=== PATIENT | male | born 1940 | race Caucasian/White ===

== ENCOUNTER 2022-04-01 12:38 | Inpatient (IN) | payer MEDICARE, BC, OTHER ==
[~2022-04-01] VITALS: Ht 172.7 cm; Wt 80.1 kg
[2022-04-01] MEDS ORDERED: METF10004 PO (12:58)
[2022-04-01] MEDS ORDERED: LEVO88TA3 PO (12:58)
[2022-04-01] MEDS ORDERED: GLIP5TAB8 PO ×2 (12:58→18:44)
[2022-04-01] MEDS ORDERED: NITR0.4S14 SL (12:58)
[2022-04-01] MEDS ORDERED: FINA5TAB2 PO (12:58)
[2022-04-01] MEDS ORDERED: METO50TA7 PO (12:58)
[2022-04-01] MEDS ORDERED: ATOR40TA75 PO (12:58)
[2022-04-01] MEDS ORDERED: TAMS1CAP17 PO (12:58)
[2022-04-01] MEDS ORDERED: OMEP-173 PO (12:58)
[2022-04-01] MEDS ORDERED: LANTINJ4 SC (12:58)
[2022-04-01 14:39] LABS: BASO % 0.3 % (0.0-1.0); EOS # 0.1 10^3/uL (0.0-0.5); EOS % 1.3 % (0.0-3.0); HEMATOCRIT 34.1 % (42.0-52.0); HEMOGLOBIN 10.5 g/dl (13.5-17.5); LYMPH % 30.5 % (24.0-44.0); MEAN CORPUSCULAR HEMOGLOBIN 27.6 pg (27.0-33.0); MEAN CORPUSCULAR HGB CONC 30.8 g/dl (32.0-36.5); MEAN CORPUSCULAR VOLUME 89.5 fl (80.0-96.0); MONO # 0.5 10^3/uL (0.0-0.8); MONO % 8.3 % (2.0-8.0); NEUTROPHILS # 3.8 10^3/uL (1.5-8.5); NEUTROPHILS % 59.1 % (36.0-66.0); PLATELET COUNT, AUTOMATED 171 10^3/uL (150-450); RED BLOOD COUNT 3.81 10^6/uL (4.30-6.10); WHITE BLOOD COUNT 6.4 10^3/uL (4.0-10.0)
[2022-04-01 15:17] LABS: BLOOD UREA NITROGEN 25 MG/DL (9-23); CALCIUM LEVEL 9.8 MG/DL (8.3-10.6); CARBON DIOXIDE LEVEL 25 MMOL/L (20-31); CHLORIDE LEVEL 102 MMOL/L (98-107); CK-MB VALUE MASS 1.3 NG/ML (<3.6); CPK CREATINE PHOSPHOKINASE 100 U/L (46-171); CREATININE FOR GFR 0.99 MG/DL (0.70-1.30); GLOMERULAR FILTRATION RATE > 60.0 (>35); GLUCOSE, FASTING 97 MG/DL (74-106); POTASSIUM SERUM 5.1 MMOL/L (3.5-5.1); SODIUM LEVEL 139 MMOL/L (136-145); THYROID STIMULATING HORMONE 0.313 uIU/ML (0.55-4.78)
[2022-04-01 17:37] LABS: CK-MB VALUE MASS 2.1 NG/ML (<3.6); MB/CK RELATIVE INDEX 2.65 (< OR =4)
[2022-04-01 18:33] LABS: RSV AMPLIFICATION NEGATIVE (NEGATIVE)
[2022-04-01] MEDS ORDERED: ASPI81TA26 PO (18:44)
[2022-04-01] MEDS ORDERED: BIOFTAB PO (18:44)
[2022-04-01] MEDS ORDERED: LOSA50TA28 PO (18:44)
[2022-04-01] MEDS ORDERED: MELA1TAB9 PO (18:44)
[2022-04-01] MEDS ORDERED: HOME MED LIST COMPLETE! XX SCH (18:45)
[2022-04-01] MEDS ORDERED: NITROGLYCERIN 0.4 MG SUBL TABLET SL PRN (19:00)
[2022-04-01] MEDS ORDERED: DEXTROSE 50% 50 ML SYRINGE IV PRN (19:20)
[2022-04-01] MEDS ORDERED: GLUCAGON INJ 1MG VIAL SC PRN (19:20)
[2022-04-01] MEDS ORDERED: GLUCOSE 4GM CHEW TABLET PO PRN (19:20)
[2022-04-01] MEDS: OMEPRAZOLE 20MG CAP PO SCH (19:46)
[2022-04-01] MEDS: TAMSULOSIN 0.4 MG CAP PO SCH (19:46)
[2022-04-01] MEDS: ATORVASTATIN 20 MG TAB PO SCH (19:47)
[2022-04-01] MEDS: LOSARTAN 50MG TABLET PO SCH (19:47)
[2022-04-01] MEDS: ASPIRIN 81MG ENTERIC TABLET PO SCH (20:59)
[2022-04-01 23:13] LABS: FERRITIN 10.7 NG/ML (10.5-307.3); FOLATE > 24.00 NG/ML (>5.4); FREE T4 1.18 NG/DL (0.89-1.76); IRON (FE) 34 UG/DL (65-175); TOTAL IRON BINDING CAPACITY 340 UG/DL (250-425); VITAMIN B12 LEVEL > 2000 PG/ML (211-911)
[2022-04-01] MEDS: INSULIN LISPRO (NovoLOG) PER UNIT SC SCH (23:40)
[2022-04-01] MEDS: METOPROLOL TART 50 MG TAB PO SCH (23:59)
[2022-04-02] VITALS (9 sets, daily range): BP systolic 130–184; BP diastolic 65–85
[2022-04-02] MEDS: LEVEMIR (INSULIN DETEMIR) 1 UNITS/0.01ML SC SCH ×2 (00:02→20:33)
[2022-04-02] MEDS ORDERED: ACETAMINOPHEN TAB 650MG DOSE (2X325MG) PO PRN (04:00)
[2022-04-02] MEDS ORDERED: LEVOTHYROXINE 88MCG TABLET (0.088 MG) PO SCH (06:00)
[2022-04-02 07:24] LABS: HEMOGLOBIN 10.7 g/dl (13.5-17.5); MEAN CORPUSCULAR HEMOGLOBIN 27.6 pg (27.0-33.0); MEAN CORPUSCULAR HGB CONC 30.6 g/dl (32.0-36.5); MEAN CORPUSCULAR VOLUME 90.2 fl (80.0-96.0); PLATELET COUNT, AUTOMATED 158 10^3/uL (150-450); RED BLOOD COUNT 3.88 10^6/uL (4.30-6.10); WHITE BLOOD COUNT 6.5 10^3/uL (4.0-10.0)
[2022-04-02] MEDS: INSULIN LISPRO (NovoLOG) PER UNIT SC SCH ×4 (07:30→20:26)
[2022-04-02 08:13] LABS: BLOOD UREA NITROGEN 23 MG/DL (9-23); CALCIUM LEVEL 10.6 MG/DL (8.3-10.6); CARBON DIOXIDE LEVEL 28 MMOL/L (20-31); CHLORIDE LEVEL 103 MMOL/L (98-107); CREATININE FOR GFR 1.02 MG/DL (0.70-1.30); GLOMERULAR FILTRATION RATE > 60.0 (>35); GLUCOSE, FASTING 134 MG/DL (74-106); MAGNESIUM LEVEL 1.9 MG/DL (1.8-2.4); PHOSPHORUS LEVEL 3.9 MG/DL (2.4-5.1); POTASSIUM SERUM 4.4 MMOL/L (3.5-5.1); SODIUM LEVEL 140 MMOL/L (136-145)
[2022-04-02] MEDS: ENOXAPARIN 40MG/0.4ML SYRINGE (J1650 PER 10MG) SC SCH (08:28)
[2022-04-02] MEDS: FINASTERIDE 5MG TAB PO SCH (08:29)
[2022-04-02] MEDS: amLODIPine 5 MG TAB PO SCH (08:29)
[2022-04-02] MEDS: METOPROLOL TART 50 MG TAB PO SCH ×2 (08:29→20:33)
[2022-04-02] MEDS: LOSARTAN 50MG TABLET PO SCH (08:30)
[2022-04-02] MEDS: SENOKOT S TAB PO SCH (09:00)
[2022-04-02] MEDS ORDERED: IRON SUCROSE 200 MG in NS 100 ML IV ONE (14:00)
[2022-04-02] MEDS: FERROUS SULFATE 325MG TAB PO SCH (16:02)
[2022-04-02] MEDS: OMEPRAZOLE 20MG CAP PO SCH (17:40)
[2022-04-02] MEDS: ATORVASTATIN 20 MG TAB PO SCH (17:40)
[2022-04-02] MEDS: TAMSULOSIN 0.4 MG CAP PO SCH (17:41)
[2022-04-02] MEDS: ASPIRIN 81MG ENTERIC TABLET PO SCH (20:32)
[2022-04-03 00:05] VITALS: BP 143/82
[2022-04-03 04:45] VITALS: BP 134/83
[2022-04-03] MEDS ORDERED: LEVOTHYROXINE 75MCG TABLET (0.075MG) PO SCH (06:00)
[2022-04-03 08:23] VITALS: BP 156/70
[2022-04-03] MEDS: METOPROLOL TART 50 MG TAB PO SCH (08:44)
[2022-04-03] MEDS: INSULIN LISPRO (NovoLOG) PER UNIT SC SCH (08:44)
[2022-04-03] MEDS: FERROUS SULFATE 325MG TAB PO SCH (08:44)
[2022-04-03] MEDS: ENOXAPARIN 40MG/0.4ML SYRINGE (J1650 PER 10MG) SC SCH (08:44)
[2022-04-03] MEDS: FINASTERIDE 5MG TAB PO SCH (08:45)
[2022-04-03] MEDS: SENOKOT S TAB PO SCH (08:45)
[2022-04-03] MEDS: LOSARTAN 50MG TABLET PO SCH (08:45)
[2022-04-03] MEDS: amLODIPine 5 MG TAB PO SCH (08:45)
[2022-04-03] MEDS ORDERED: FERR1TAB8 PO (09:56)
[2022-04-03] MEDS ORDERED: LEVO75TA4 PO (09:56)
[2022-04-03] MEDS ORDERED: SENN-52 PO (09:56)
[2022-04-03] MEDS ORDERED: AMLO1TAB24 PO (09:56)
== END 2022-04-03 12:08 | disposition home or self-care (01) | DRG 312 ==
LOC: M ED 12:38 → M ED INP 18:53 → M PCU 04-02 04:16
PROVIDERS: ADMIT Internal Medicine; ATTEND Internal Medicine
PROC: B246ZZZ Ultrasonography of Right and Left Heart (ICD-10-PCS; principal; 2022-04-01)
DX: R55 Syncope and collapse (principal); E11.641 Type 2 diabetes mellitus with hypoglycemia with coma; I25.10 Atherosclerotic heart disease of native coronary artery without angina pectoris; Z95.5 Presence of coronary angioplasty implant and graft; I35.0 Nonrheumatic aortic (valve) stenosis; I10 Essential (primary) hypertension; E78.5 Hyperlipidemia, unspecified; Z86.73 Personal history of transient ischemic attack (TIA), and cerebral infarction without residual deficits; E03.9 Hypothyroidism, unspecified; K21.9 Gastro-esophageal reflux disease without esophagitis; N40.0 Benign prostatic hyperplasia without lower urinary tract symptoms; Z90.49 Acquired absence of other specified parts of digestive tract; I16.0 Hypertensive urgency; R91.8 Other nonspecific abnormal finding of lung field; Z20.822 Contact with and (suspected) exposure to COVID-19; Z79.82 Long term (current) use of aspirin; Z79.84 Long term (current) use of oral hypoglycemic drugs; Z79.4 Long term (current) use of insulin; Z79.890 Hormone replacement therapy; Z79.899 Other long term (current) drug therapy; Z91.040 Latex allergy status; D64.9 Anemia, unspecified